=== PATIENT | male | born 1960 | race Caucasian/White ===

== ENCOUNTER 2024-09-29 11:15 | Emergency (ER) | payer OTHER ==
--- OUTSIDE RECORDS SUMMARY | 2024-09-29 11:18 | XMS REPORT | Continuity of Care Document ---
Author Name Unknown Address [address] [facility] [address] [place] [address] [facility] [place] Address [address] [facility] [place] [address] Care Team Providers Care Retread Mold Operator Name Role Phone Austin_Jenifer Attending Clinician Unavailable Alyssa Avila Attending Clinician [phone] Laureen Admitting Clinician Unavailable Payers Payer Name Policy Type Policy Number Effective Date Expirati on Date Source [place] [id number] 2017 00:00:00 Social History Smoking Status Start Date Stop Date Source Never Smoker [facility] Medications Ordered Medication Name Filled Medication Name Start Date Stop Date Current Medication? Ordering Clinician Indication Dosage Frequency Signature (SIG) Comments Components Source aspirin 81 mg tablet,wendi yed release Take 1 tablet every day by oral route. aspirin 81 mg tablet,wendi yed release Take 1 tablet every day by oral route. No 1 Q1D aspirin 81 mg tablet,del ayed release Take 1 tablet every day by oral route. [facility] lisinopril 20 mg tablet TAKE 1 TABLET BY MOUTH TWICE A DAY DIRECTED FOR 90 DAYS lisinopril 20 mg tablet TAKE 1 TABLET BY MOUTH TWICE A DAY DIRECTED FOR 90 DAYS No lisinopril 20 mg tablet TAKE 1 TABLET BY MOUTH TWICE A DAY DIRECTED FOR 90 DAYS [facility] metformin ER 750 mg tablet,exte nded release 24 hr TAKE 1 TABLET BY MOUTH TWICE A DAY metformin ER 750 mg tablet,exte nded release 24 hr TAKE 1 TABLET BY MOUTH TWICE A DAY No metformin ER 750 mg tablet,ext ended release 24 hr TAKE 1 TABLET BY MOUTH TWICE A DAY [facility] vitamin B complex vitamin B complex No vitamin B complex [facility] albuterol sulfate HFA 90 mcg/actuati on aerosol inhaler INHALE 2 PUFFS EVERY 4 HOURS BY INHALATION ROUTE. albuterol sulfate HFA 90 mcg/actuati on aerosol inhaler INHALE 2 PUFFS EVERY 4 HOURS BY INHALATION ROUTE. No albuterol sulfate HFA 90 mcg/actuat ion aerosol inhaler INHALE 2 PUFFS EVERY 4 HOURS BY INHALATION ROUTE. [facility] montelukast 10 mg tablet TAKE 1 TABLET BY MOUTH EVERY DAY FOR 30 DAYS montelukast 10 mg tablet TAKE 1 TABLET BY MOUTH EVERY DAY FOR 30 DAYS No montelukas t 10 mg tablet TAKE 1 TABLET BY MOUTH EVERY DAY FOR 30 DAYS [facility] Mounjaro 2.5 mg/0.5 mL subcutaneou s pen injector Mounjaro 2.5 mg/0.5 mL subcutaneou s pen injector No Mounjaro 2.5 mg/0.5 mL subcutaneo us pen injector [facility] mupirocin 2 % topical ointment APPLY SPARINGLY TO AFFECTED AREA 3 TIMES A DAY FOR 10 DAYS mupirocin 2 % topical ointment APPLY SPARINGLY TO AFFECTED AREA 3 TIMES A DAY FOR 10 DAYS No mupirocin 2 % topical ointment APPLY SPARINGLY TO AFFECTED AREA 3 TIMES A DAY FOR 10 DAYS [facility] oseltamivir 75 mg capsule TAKE 1 CAPSULE BY MOUTH TWICE A DAY FOR 5 DAYS oseltamivir 75 mg capsule TAKE 1 CAPSULE BY MOUTH TWICE A DAY FOR 5 DAYS No oseltamivi r 75 mg capsule TAKE 1 CAPSULE BY MOUTH TWICE A DAY FOR 5 DAYS [facility] prednisone 20 mg tablet TAKE 2 TABLETS BY MOUTH EVERY DAY FOR 5 DAYS prednisone 20 mg tablet TAKE 2 TABLETS BY MOUTH EVERY DAY FOR 5 DAYS No prednisone 20 mg tablet TAKE 2 TABLETS BY MOUTH EVERY DAY FOR 5 DAYS [facility] promethazin e-DM 6.25 mg-15 mg/5 mL oral syrup TAKE 5 ML BY MOUTH EVERY DAY AT BEDTIME promethazin e-DM 6.25 mg-15 mg/5 mL oral syrup TAKE 5 ML BY MOUTH EVERY DAY AT BEDTIME No promethazi ne-DM 6.25 mg-15 mg/5 mL oral syrup TAKE 5 ML BY MOUTH EVERY DAY AT BEDTIME [facility] sildenafil 100 mg tablet sildenafil 100 mg tablet No sildenafil 100 mg tablet [facility] tamsulosin 0.4 mg capsule tamsulosin 0.4 mg capsule No tamsulosin 0.4 mg capsule [facility] Immunizations Ordered Immunization Name Filled Immunization Name Date Status Comments Source influenza, injectable, quadrivalent influenza, injectable, quadrivalent Unknown Completed [facility] Vital Signs Vital Name Observation Time Observation Value Comments S ource BP Diastolic 2024-01-28 00:00:00 82 mm[Hg] [facility] Height 2024-01-28 00:00:00 77 [in_i] [place] [facility] BP Systolic 2024-01-28 00:00:00 110 mm[Hg] [place] Body Weight 2024-01-28 00:00:00 220 [lb_av] [facility] BP Diastolic 2020-09-28 00:00:00 70 mm[Hg] [facility] Height 2020-09-28 00:00:00 72 [in_i] [place] [facility] BMI (Body Mass Index) 2020-09-28 00:00:00 28.6 kg/m2 [facility] BP Systolic 2020-09-28 00:00:00 120 mm[Hg] [place] Body Weight 2020-09-28 00:00:00 211 [lb_av] [facility] Procedures Procedure Date / Time Performed Performing Clinicia n Source MRI, prostate, w/wo contrast 2024-01-28 00:00:00 [facility] Surgery/Procedure 2018-11-18 00:00:00 [facility] Cystoscopy, Flexible (Surg) 2018-11-18 00:00:00 [facility] Surgery/Procedure 2018-10-07 00:00:00 [facility] Encounters Start Date/Time End Date/Time Encounter Type Admission Type Attending Clinicians Care Facility Care Department Encounter ID Source 2024-01-28 00:00:00 2024-01-28 00:00:00 Alyssa Avila MD: [id number] [facility] [address], [place] [address] , [facility] - PLASTICS FITTER [id number] [facility] 2021-07-17 02:13:00 2021-07-17 02:13:00 Outpatient [facility] [id number] [facility] 2020-10-29 12:58:00 2020-10-29 12:58:00 Outpatient [facility] [id number] [facility] 2020-10-26 10:11:00 2020-10-26 10:11:00 Outpatient [facility]U [id number] [facility] 2020-10-22 01:28:00 2020-10-22 01:28:00 Outpatient [facility] HMU [id number] [facility] 2020-10-22 01:25:00 2020-10-22 01:25:00 Outpatient [facility]U [id number] [facility] 2020-10-20 01:02:00 2020-10-20 01:02:00 Outpatient [facility]A [facility] HMU [id number] [facility] 2020-10-11 08:59:00 2020-10-11 08:59:00 Outpatient [facility] HMU [id number] [facility] 2020-10-01 12:13:00 2020-10-01 12:13:00 Outpatient [facility]A [facility] HMU [id number] [facility] 2020-09-28 10:49:00 2020-09-28 10:49:00 Outpatient [facility]U [id number] [facility] 2020-09-28 00:00:00 2020-09-28 00:00:00 Outpatient Alyssa Avila [facility] [id number] 2020-09-28 00:00:00 2020-09-28 00:00:00 Alyssa Avila MD: [id number] [address] , Ph. [facility] [id number] [facility] 2020-09-24 01:20:00 2020-09-24 01:20:00 Outpatient [facility] [id number] [facility] 2020-09-24 01:20:00 2020-09-24 01:20:00 Outpatient [facility] [id number] [facility] 2020-09-14 11:26:00 2020-09-14 11:26:00 Outpatient [facility] [id number] [facility]
--- NOTE | 2024-09-29 13:05 | RAD REPORT ---
Procedure: Chest Single View HISTORY: Cough COMPARISON: none FINDINGS: The lungs appear clear of acute infiltrate. No significant pleural effusion noted. The heart is normal size. IMPRESSION: No acute abnormality is displayed.
[2024-09-29] MEDS ORDERED: AMLODIPINE 10 MG TAB ONE (13:12)
[2024-09-29 13:38] LABS: Absolute Eosinophils 0.2 K/uL (0-0.5); Absolute Lymphocytes (CBC) 1.3 K/uL (0.7-4.9); Absolute Monocytes 0.4 K/uL (0.1-1.3); Absolute Neutrophil 4.2 K/uL (1.8-8.0); Basophils % 0.7 % (0-1.3); Eosinophils % 2.7 % (0-4.4); Hematocrit 44.8 % (39.6-49.0); Hemoglobin 15.8 g/dL (13.6-17.9); Lymphocytes % 21.2 % (15.3-44.8); MCH 30.5 pg (27.0-35.0); MCHC 35.3 g/dL (32.0-36.0); MCV 86.4 fL (80-100); MPV 7.7 fL (7.6-11.3); Monocytes % 6.4 % (3.3-12.3); Platelets 211 thou/uL (152-406); RBC Red Blood Cell Count 5.18 M/uL (4.33-5.43); Red Cell Distribution Width 13.8 % (12.1-15.2)
[2024-09-29 13:44] LABS: Specific Gravity > 1.030 (1.005-1.030); Sqamous Epithelial <5 /HPF (None Seen); Urine Bacteria None Seen /HPF (<20); Urine Bilirubin NEGATIVE (Negative); Urine Blood Negative (Negative); Urine Clarity Clear (Clear); Urine Color Yellow (Yellow); Urine Culture Reflex Order NOT NEEDED; Urine Glucose 4+ (Over) (Negative); Urine Ketones TRACE (Negative); Urine Microscopic Reflex YN ORDER UMIC; Urine Mucus Slight /HPF (None Seen); Urine Nitrite NEGATIVE (Negative); Urine Protein 1+ (Negative); Urine RBC None Seen /HPF (None Seen); Urine Urobilinogen Normal (Normal); Urine WBC None Seen /HPF (<5); Urine pH 5.5 (5.0-7.0)
[2024-09-29 13:51] LABS: PT Prothrombin Time 11.7 SECONDS (10-13.0); Protime INR 1.03
[2024-09-29 13:59] LABS: Anion Gap 7.8 mEq/L (5.0-15.0); Bilirubin Direct 0.2 mg/dL (0-0.2); Bilirubin Indirect, Calculated 0.4 mg/dL (0.2-0.8); Bilirubin Total 0.6 mg/dL (0.2-1.0); Globulin 3.9 g/dL (2.3-3.5); Magnesium 1.8 mg/dL (1.6-2.4); Potassium 3.8 mEq/L (3.5-5.1); Protein, Total 7.9 g/dL (6.4-8.2); Troponin High Sensitivity 48.5 pg/mL (<58.9)
--- NOTE | 2024-09-29 14:04 | ER ---
Nurse's Notes [facility] Name: Saul Yeboah Age: 64 yrs Sex: Male : 1960 Arrival Date: 09/29/2024 Time: 11:15 Bed 13 Private MD: Diagnosis: Essential (primary) hypertension;Type 2 diabetes mellitus with hyperglycemia;Headache Presentation: 09/29 11:41 Chief complaint: Patient states: Recently started back up on blood pressure medications and was having a slight headache. Blood pressure was reading systolic of 220. Pt had a slight headache this morning that has improved and wanted to come to the ER to get checked out. Coronavirus screen: Client denies travel out of the [place] in the last 14 days. Ebola Screen: Patient denies exposure to infectious person. Patient denies travel to an Ebola-affected area in the 21 days before illness onset. Initial Sepsis Screen: Does the patient meet any 2 criteria? No. Patient's initial sepsis screen is negative. Does the patient have a suspected source of infection? No. Patient's initial sepsis screen is negative. Risk Assessment: Do you want to hurt yourself or someone else? Patient reports no desire to harm self or others. Onset of symptoms is unknown. 11:41 Method Of Arrival: Ambulatory ss 11:41 Acuity: MATHEW 3 ss Historical: - Allergies: 11:44 No Known Allergies; ss - Home Meds: 11:44 lisinopril 20 mg Oral tab 1 tab BID [Active]; aspirin 81 mg Oral TbEC 1 tab once daily ss [Active]; Metformin Oral [Active]; - PMHx: 11:44 Diabetes - NIDDM; Hypertension; ss - Immunization history:: Adult Immunizations up to date. - Infectious Disease History:: Denies. - Social history:: Smoking status: Patient denies any tobacco usage or history of. Screenin:00 [facility] ED Fall Risk Assessment (Adult) History of falling in the last 3 months, kj2 including since admission No falls in past 3 months (0 pts) Confusion or Disorientation No (0 pts) Intoxicated or Sedated No (0 pts) Impaired Gait No (0 pts) Mobility Assist Device Used No (0 pt) Altered Elimination No (0 pt) Score/Fall Risk Level 0 - 2 = Low Risk Maintained a safe environment, Hourly rounding (assess needs \T\ fall precautionary measures) done. Abuse screen: Denies threats or abuse. Denies injuries from another. Nutritional screening: No deficits noted. Tuberculosis screening: No symptoms or risk factors identified. Assessment: 13:00 General: Appears in no apparent distress. Behavior is cooperative. Pain: Complains of kj2 pain in head Pain currently is 4 out of 10 on a pain scale. Neuro: Level of Consciousness is awake, alert, obeys commands, Oriented to person, place, time, situation. Cardiovascular: Patient's skin is warm and dry. Respiratory: Airway is patent Respiratory effort is unlabored. GI: No signs and/or symptoms were reported involving the gastrointestinal system. : No signs and/or symptoms were reported regarding the genitourinary system. 14:15 Reassessment: Patient appears in no apparent distress at this time. Patient and/or kj2 family updated on plan of care and expected duration. Pain level reassessed. Patient is alert, oriented x 3, equal unlabored respirations, skin warm/dry/pink. Vital Signs: 11:41 BP 186 / 106; Pulse 68; Resp 16; Temp 97.9(O); Pulse Ox 100% on R/A; ss 13:00 BP 180 / 102; Pulse 64; Resp 18; Pulse Ox 100% on R/A; kj2 14:15 BP 157 / 96; Pulse 70; Resp 18; Temp 98; Pulse Ox 100% on R/A; kj2 Edward Coma Score: 14:03 Eye Response: spontaneous(4). Motor Response: obeys commands(6). Verbal Response: olivia oriented(5). Total: 15. NIH Stroke Scale Scores: 14:03 NIHSS Score: 0 olivia ED Course: 11:19 Patient arrived in ED. al6 11:22 Oscar Figueredo MD is Attending Physician. olivia 11:44 Triage completed. ss 11:44 Arm band placed on right wrist. ss 11:53 XRAY Chest (1 view) In Process Unspecified. EDMS 13:09 Traci Huffman, JERMAINE is Primary Nurse. kj2 13:15 Patient has correct armband on for positive identification. Provided Education on: call kj2 light. 13:57 EKG done, by ED staff, reviewed by Oscar Figueredo MD. am7 14:03 Tyshawn Ludwig MD is Referral Physician. olivia Administered Medications: 13:28 Drug: Norvasc PO 10 mg PO once Route: PO; kj2 14:25 Follow up: Response: No adverse reaction kj2 Medication: 13:15 VIS not applicable for this client. kj2 Outcome: 14:03 Discharge ordered by MD. baker 14:48 Patient left the ED. kj NIH Stroke Scale - NIH Stroke Score Date: 09/29/2024 Time: 14:03 Total Score = 0 10. Dysarthria (speech clarity - read or repeat words) - 0(Normal) 11. Extinction and Inattention (visual/tactile/auditory/spatial/personal) - 0(No abnormality) 1a. Level of Consciousness (LOC) - 0(Alert) 1b. Level of Consciousness (LOC) (Month \T\ Age) - 0(Both) 1c. LOC Commands (Open \T\ Closes Eyes/Grade Teacher) - 0(Both) 2. Best Gaze (Lateral Gaze Paresis) - 0(Normal) 3. Visual Field Loss - 0(No visual loss) 4. Facial Palsy - 0(Normal) 5a. Left Arm: Motor (10-second hold) - 0(No drift) 5b. Right Arm: Motor (10-second hold) - 0(No drift) 6a. Left Leg: Motor (5-second hold - always test supine) - 0(No drift) 6b. Right Leg: Motor (5-second hold - always test supine) - 0(No drift) 7. Limb Ataxia (finger/nose \T\ heel/simmons - test with eyes open) - 0(Absent) 8. Sensory Loss (pinprick arms/legs/face) - 0(Normal) 9. Best Language: Aphasia (description/naming/reading) - 0(No aphasia) Initials: olivia Signatures: Dispatcher [employer] EDOscar Pinedo MD MD cha Blanchard, Shelby, RN RN ss Traci Huffman RN RN kj2 Terri Pepper 7 Heaven [id number]
--- NOTE | 2024-09-29 14:04 | EDPHYS ---
Physician Documentation [facility] Name: Saul Yeboah Age: 64 yrs Sex: Male : 1960 Arrival Date: 09/29/2024 Time: 11:15 Bed 13 Private MD: ED Physician Oscar Figueredo HPI: 09/29 13:18 This 64 yrs old Male presents to ER via Ambulatory with complaints of High olivia Blood Pressure. 13:18 The patient has elevated blood pressure and discovered this at home. The patient has olivia elevated blood pressure and discovered this at home, with a home device. Modifying factors: The symptoms are aggravated by activity, The symptoms are alleviated by remaining still. Associated signs and symptoms: Pertinent positives:. Severity of symptoms: At its worst the blood pressure was moderate, in the emergency department the blood pressure is unchanged. The patient has experienced similar episodes in the past, multiple times. Historical: - Allergies: 11:44 No Known Allergies; ss - Home Meds: 11:44 lisinopril 20 mg Oral tab 1 tab BID [Active]; aspirin 81 mg Oral TbEC 1 tab once daily ss [Active]; Metformin Oral [Active]; - PMHx: 11:44 Diabetes - NIDDM; Hypertension; ss - Immunization history:: Adult Immunizations up to date. - Infectious Disease History:: Denies. - Social history:: Smoking status: Patient denies any tobacco usage or history of. ROS: 13:18 Constitutional: Negative for fever, chills, and weight loss, Eyes: Negative for injury, olivia pain, redness, and discharge, ENT: Negative for injury, pain, and discharge, Neck: Negative for injury, pain, and swelling, Cardiovascular: Negative for chest pain, palpitations, and edema, Respiratory: Negative for shortness of breath, cough, wheezing, and pleuritic chest pain, Abdomen/GI: Negative for abdominal pain, nausea, vomiting, diarrhea, and constipation, Back: Negative for injury and pain, : Negative for injury, bleeding, discharge, and swelling, MS/Extremity: Negative for injury and deformity, Skin: Negative for injury, rash, and discoloration, Psych: Negative for depression, anxiety, suicide ideation, homicidal ideation, and hallucinations, Allergy/Immunology: Negative for hives, rash, and allergies, Endocrine: Negative for neck swelling, polydipsia, polyuria, polyphagia, and marked weight changes, Hematologic/Lymphatic: Negative for swollen nodes, abnormal bleeding, and unusual bruising, 13:18 Neuro: Positive for dizziness, headache, Exam: 13:18 Constitutional: This is a well developed, well nourished patient who is awake, alert, olivia and in no acute distress. Head/Face: Normocephalic, atraumatic. Eyes: Pupils equal round and reactive to light, extra-ocular motions intact. Lids and lashes normal. Conjunctiva and sclera are non-icteric and not injected. Cornea within normal limits. Periorbital areas with no swelling, redness, or edema. ENT: Nares patent. No nasal discharge, no septal abnormalities noted. Tympanic membranes are normal and external auditory canals are clear. Oropharynx with no redness, swelling, or masses, exudates, or evidence of obstruction, uvula midline. Mucous membranes moist. Neck: Trachea midline, no thyromegaly or masses palpated, and no cervical lymphadenopathy. Supple, full range of motion without nuchal rigidity, or vertebral point tenderness. No Meningismus. Chest/axilla: Normal chest wall appearance and motion. Nontender with no deformity. No lesions are appreciated. Cardiovascular: Regular rate and rhythm with a normal S1 and S2. No gallops, murmurs, or rubs. Normal PMI, no JVD. No pulse deficits. Respiratory: Lungs have equal breath sounds bilaterally, clear to auscultation and percussion. No rales, rhonchi or wheezes noted. No increased work of breathing, no retractions or nasal flaring. Abdomen/GI: Soft, non-tender, with normal bowel sounds. No distension or tympany. No guarding or rebound. No evidence of tenderness throughout. Back: No spinal tenderness. No costovertebral tenderness. Full range of motion. Male : Normal genitalia with no discharge or lesions. Skin: Warm, dry with normal turgor. Normal color with no rashes, no lesions, and no evidence of cellulitis. MS/ Extremity: Pulses equal, no cyanosis. Neurovascular intact. Full, normal range of motion., bilateral aka Neuro: Awake and alert, GCS 15, oriented to person, place, time, and situation. Cranial nerves II-XII grossly intact. Motor strength 5/5 in all extremities. Sensory grossly intact. Cerebellar exam normal. Normal gait. Psych: Awake, alert, with orientation to person, place and time. Behavior, mood, and affect are within normal limits. 13:18 ECG was reviewed by the Attending Physician. 13:18 Musculoskeletal/extremity: DVT Exam: No signs of deep vein thrombosis. no pain, no swelling, no tenderness, negative Homans' sign noted on exam, no appreciated bluish discoloration, no erythema, no increased warmth, 13:55 ECG was reviewed by the Attending Physician. [facility] Vital Signs: 11:41 BP 186 / 106; Pulse 68; Resp 16; Temp 97.9(O); Pulse Ox 100% on R/A; ss 13:00 BP 180 / 102; Pulse 64; Resp 18; Pulse Ox 100% on R/A; kj2 14:15 BP 157 / 96; Pulse 70; Resp 18; Temp 98; Pulse Ox 100% on R/A; kj2 NIH Stroke Scale Scores: 14:03 NIHSS Score: 0 olivia [place] Coma Score: 14:03 Eye Response: spontaneous(4). Motor Response: obeys commands(6). Verbal Response: olivia oriented(5). Total: 15. MDM: 11:22 Medical Screening Exam initiated olivia 11:44 Medical Screening Exam initiated olivia 13:55 Differential diagnosis: hypertensive crisis, Malignant HTN. Data reviewed: vital signs, olviia lab test result(s), EKG, radiologic studies, plain films. Consideration of Admission/Observation Escalation of care including admission/observation considered. I considered the following discharge prescriptions or medication management in the emergency department Medications were administered in the Emergency Department. See MAR. Independent interpretation of the following test(s) in the Emergency Department EKG: See my EKG interpretation above. Test considered but Not performed: MRI: NO MRI BRAIN. CT: NO CT BRAIN. Care significantly affected by the following chronic conditions: Diabetes, Hypertension. Counseling: I had a detailed discussion with the patient and/or guardian regarding the historical points, exam findings, and any diagnostic results supporting the discharge/admit diagnosis, lab results, radiology results, the need for outpatient follow up, for definitive care, a jewelry dipper, a family practitioner. 09/29 11: Order name: Basic Metabolic Panel; Complete Time: 14:03 [facility] 09/29 11:23 Order name: CBC with Diff; Complete Time: 14:03 09/29 11:23 Order name: LFT's; Complete Time: 14:03 09/29 11:23 Order name: Magnesium; Complete Time: 14:03 09/29 11:23 Order name: NT PRO-BNP; Complete Time: 14:03 09/29 11:23 Order name: PT-INR; Complete Time: 14:03 09/29 11:23 Order name: Troponin HS; Complete Time: 14:03 09/29 11:23 Order name: Urinalysis w/ reflexes; Complete Time: 14:03 09/29 11:23 Order name: XRAY Chest (1 view); Complete Time: 14:03 09/29 11:23 Order name: Cardiac monitoring; Complete Time: 13:56 09/29 11:23 Order name: EKG - Nurse/Tech; Complete Time: 13:56 09/29 11:23 Order name: IV Saline Lock; Complete Time: 14:02 olivia 09/29 11:23 Order name: Labs collected and sent; Complete Time: 13:28 [facility] 09/29 11:23 Order name: O2 Per Protocol; Complete Time: 13:56 09/29 11:23 Order name: O2 Sat Monitoring; Complete Time: 13:56 [facility] EC:55 Rate is 66 beats/min. Rhythm is regular. QRS [place] is Normal. VT interval is normal. QRS olivia interval is normal. QT interval is normal. No Q waves. T waves are Normal. No ST changes noted. Clinical impression: NSR w/ Non-specific ST/T Changes and No evidence of ischemia. Interpreted by me. Reviewed by me. Administered Medications: 13:28 Drug: Norvasc PO 10 mg PO once Route: PO; kj2 14:25 Follow up: Response: No adverse reaction kj2 Disposition Summary: 09/29/24 14:03 Discharge Ordered Notes: Location: Home olivia Problem: new olivia Symptoms: have improved olivia Condition: Stable olivia Diagnosis - Essential (primary) hypertension olivia - Type 2 diabetes mellitus with hyperglycemia olivia - Headache olivia Followup: olivia - With: Private Physician - When: 2 - 3 days - Reason: Recheck today's complaints, Continuance of care, Re-evaluation by your physician Followup: olivia - With: Tyshawn Ludwig MD - When: 2 - 3 days - Reason: Recheck today's complaints, Re-evaluation by your physician Discharge Instructions: - Discharge Summary Sheet olivia - Hypertension, Adult olivia - Hypertension, Adult, [id number] olivia - Diabetes Mellitus and Nutrition, Adult olivia - How to Take Your Blood Pressure, [id number] olivia - Aspirin and Your Heart olivia - Managing Your Hypertension olivia Forms: - Medication Reconciliation Form olivia - Antibiotic Education olivia - Prescription Opioid Use olivia - Patient Portal Instructions olivia - Leadership Thank You Letter [facility] Prescriptions: - Norvasc 10 mg Oral Tablet - take 1 tablet ORAL route once daily; 30 tablet; Refills: 0, Product Selection olivia Permitted - Lisinopril 20 mg Oral Tablet - take 1 tablet ORAL route once daily; 20 tablet; Refills: 0, Product Selection olivia Permitted NIH Stroke Scale - NIH Stroke Score Date: 09/29/2024 Time: 14:03 Total Score = 0 10. Dysarthria (speech clarity - read or repeat words) - 0(Normal) 11. Extinction and Inattention (visual/tactile/auditory/spatial/personal) - 0(No abnormality) 1a. Level of Consciousness (LOC) - 0(Alert) 1b. Level of Consciousness (LOC) (Month \T\ Age) - 0(Both) 1c. LOC Commands (Open \T\ Closes Eyes/Pyrometallurgical Engineer) - 0(Both) 2. Best Gaze (Lateral Gaze Paresis) - 0(Normal) 3. Visual Field Loss - 0(No visual loss) 4. Facial Palsy - 0(Normal) 5a. Left Arm: Motor (10-second hold) - 0(No drift) 5b. Right Arm: Motor (10-second hold) - 0(No drift) 6a. Left Leg: Motor (5-second hold - always test supine) - 0(No drift) 6b. Right Leg: Motor (5-second hold - always test supine) - 0(No drift) 7. Limb Ataxia (finger/nose \T\ heel/simmons - test with eyes open) - 0(Absent) 8. Sensory Loss (pinprick arms/legs/face) - 0(Normal) 9. Best Language: Aphasia (description/naming/reading) - 0(No aphasia) Initials: [facility] Signatures: Dispatcher [employer] Oscar Monreal MD MD cha Blanchard, Shelby, RN RN ss Traci Huffman RN RN kj2 Corrections: (The following items were deleted from the chart) 11: 11:23 BASIC METABOLIC PANEL+C.LAB.BRZ ordered. EDMS EDMS 11: 11:23 CBC+H.LAB.BRZ ordered. EDMS EDMS 11: 11:23 HEPATIC FUNCTION+C.LAB.BRZ ordered. EDMS EDMS 11: 11:23 MAGNESIUM+C.LAB.BRZ ordered. EDMS EDMS 11: 11:23 PROBNP+C.LAB.BRZ ordered. EDMS EDMS 11: 11:23 PROTIME (+INR)+COAG.LAB.BRZ ordered. EDMS EDMS 11: 11:23 Troponin High Sensitivity+C.LAB.BRZ ordered. EDMS EDMS 11: 11:23 Urinalysis+U.LAB.BRZ ordered. EDMS EDMS 11: 11:23 Chest Single View+RAD.RAD.BRZ ordered. EDMS EDMS
[2024-09-29 15:20] VITALS: O2SAT 100
[2024-09-29 15:22] VITALS: BP 157/96; TEMP 98
--- NOTE | 2024-10-03 12:22 | EKG ---
Test Date: 2024-09-29 Test Time: 13:45:58 Wrapper Stitcher: AM MEASUREMENT RESULTS: Intervals: Rate: 66 ID: [id number] QRSD: 96 QT: 436 QTc: 457 Walton: P: 40 ID: [id number] QRS: -1 T: 47 INTERPRETIVE STATEMENTS: Normal sinus rhythm Anterior infarct, age undetermined Abnormal ECG No previous ECG available for comparison Electronically Signed On 10-03-24 12:11:46 CDT by Evens Jay
== END 2024-09-29 14:48 | disposition home or self-care (01) ==
LOC: ER 11:15
DX: I10 Essential (primary) hypertension (principal); E11.65 Type 2 diabetes mellitus with hyperglycemia; R51.9 Headache, unspecified; Z79.82 Long term (current) use of aspirin
CPT/HCPCS: 36415; 71045; 80048; 80076; 81001; 83735; 83880; 84484; 85025; 85610; 93005; 99283